=== PATIENT | female | born 1930 | race Caucasian/White ===

== ENCOUNTER 2016-06-30 13:15 | Outpatient (CLI) | payer MEDICARE, BC ==
[~2016-06-30] VITALS: Ht 165.1 cm; Wt 59.1 kg
[~2016-06-30 13:15] MED LIST: ALEVE 220MG220 MG PO; ANTIVERT 25MG25 MG PO; APRESOLINE 25MG25 MG PO; BETAPACE 80MG80 MG PO; COLACE 100100 MG/CAP PO; COUMADIN 2MG2 MG/TAB PO; COUMADIN4 MG; DULCOLAX S10 MG/SUPP RC; FERROUS SU325 MG/TAB PO; IMDUR 30MG30 MG/TAB PO; IPRATROPIUM BROM3 M1 IH; KLOR-CON M2020 MEQ PO; LANOXIN 0.120.125 MG PO; LASIX 20MG TABL20 MG PO; LASIX 40MG TABL40 MG PO; MULTIPLE VITAMI1 TA4 PO; NORVASC 10MG10 MG PO; PRIL40 PO; PRILOSEC 20MG20 MG PO; PRINIVIL40 MG PO; RESTORIL 1515 MG/CAP PO; Senokot-S PO; TIROSINT150 MCG PO; TOPROL XL 50MG50 MG PO; TYLENOL 325MG325 MG PO; TYLENOL 500MG500 MG PO; VITAMIN D1000 IU; ZANTAC 7575 MG PO; ZESTRIL 20MG TA20 MG PO; ZOFRAN 4MG T4 MG/TAB PO
[2016-06-30 13:45] VITALS: BP 114/49; PULSE 61; TEMP 97.5
[2016-06-30] MEDS ORDERED: ASPIRIN 81M81 MG/TA2 PO (13:52)
[2016-06-30] MEDS ORDERED: NORCO 325 MG-51 TAB PO (13:55)
[2016-06-30] MEDS ORDERED: CEPHALEXIN500 M1 PO (14:57)
== END 2016-06-30 15:15 | disposition home or self-care (01) ==
LOC: EUO 13:15
DX: I48.91 Unspecified atrial fibrillation (principal)
CPT/HCPCS: C1764